=== PATIENT | male | born 1985 | race Two or more races ===

== ENCOUNTER 2017-03-21 14:24 | Emergency (ER) | payer MEDICAID ==
[2017-03-21 14:40] VITALS: BP 140/83; PULSE 89; RESP 18; TEMP 98.1; O2SAT 97
--- NOTE | 2017-03-21 16:30 | EDPHY ---
H & P Time Seen by Provider: 03/21/17 16:09 HPI/ROS: CHIEF COMPLAINT: Glucometer test strips refill HISTORY OF PRESENT ILLNESS: Patient is a 31-year-old male with a history of diabetes on metformin. Patient states he had been incarcerated for the past 3 years. He was released yesterday. He normally checks his glucose twice daily. He takes metformin 1000 mg twice daily. He was given a prescription for the medication on discharge. He normally test is glucose twice a day. He has a glucometer but ran out of the test strips. He has no new complaints. REVIEW OF SYSTEMS: My complete review of systems is negative except as mentioned in the HPI. Past Medical/Surgical History: Includes diabetes Smoking Status: Former smoker Physical Exam: Vitals noted General Appearance: Alert and no distress. Head: Pupils equal. Normal. Respiratory: No respiratory distress. Cardiac: regular rate and rhythm. Extremities: Full range of motion, normal appearing. Skin: No rashes or lesions. Numerous tattoos Neuro: Alert. Normal mood and affect. Constitutional: Initial Vital Signs Temperature (C) 36.7 C 03/21/17 14:38 Heart Rate 89 03/21/17 14:38 Respiratory Rate 18 03/21/17 14:38 Blood Pressure 140/83 H 03/21/17 14:38 O2 Sat (%) 97 03/21/17 14:38 O2 Delivery Mode Room Air Allergies/Adverse Reactions: sulfamethoxazole [From Bactrim] Allergy (Verified 03/21/17 14:41) trimethoprim [From Bactrim] Allergy (Verified 03/21/17 14:41) Home Medications: Medication Instructions Recorded Metformin HCl 03/21/17 Medical Decision Making ED Course/Re-evaluation: In the emergency department I discussed follow-up options with the patient. He was given a prescription for both diabetic test lancets and glucometer test strips. He was given follow-up with primary care physician. He is given warnings prior to leaving. Differential Diagnosis: My differential includes but isn't limited to diabetes, hyperglycemia Departure - Departure Disposition: Home, Routine, Self-Care Clinical Impression: Diabetes Qualifiers: Diabetes mellitus type: type 2 Diabetes mellitus complication status: without complication Condition: Good Instructions: Diabetes Insipidus (ED) Additional Instructions: You have been given follow-up with primary care physician. Call to make an appointment. Referrals: Vida Conti MD [Medical Doctor] - 5-7 days, call for appt. [facility],. [Clinic] - 5-7 days, call for appt.
== END 2017-03-21 16:42 | disposition home or self-care (01) ==
DX: E11.9 Type 2 diabetes mellitus without complications (principal); Z87.891 Personal history of nicotine dependence; Z79.84 Long term (current) use of oral hypoglycemic drugs